=== PATIENT | male | born 1950 | race Caucasian/White ===

== ENCOUNTER 2019-07-17 14:10 | Inpatient (IN) | payer MEDICARE, BC ==
[~2019-07-17] VITALS: Ht 165.1 cm; Wt 94.3 kg
--- NOTE | 2019-07-17 14:20 | NUR ---
BIB ra frm home, c/o altered and fever, worsening x 2 weeks . Patient a/ox2, able to follow commands, breathing even and unlabored, spo2 85% on room air. Changed into gown, attached to the monitoring tech. Iv line established.
[2019-07-17] MEDS ORDERED: ACETAMINOPHEN 650 MG/SUPP.RECT RC ONE ×2 (14:29→14:30)
[2019-07-17] MEDS ORDERED: IV NS 0.9% 1,000 ML BAG IV ONE (14:30)
[2019-07-17] MEDS ORDERED: VANCOMYCIN 1 GM in IV D5W 250 ML IV ONE (14:30)
[2019-07-17] MEDS ORDERED: MEROPENEM 1,000 MG in IV NS 0.9% 100 ML IV ONE (14:30)
--- NOTE | 2019-07-17 14:40 | NUR ---
Vaishali wharton in [facility] - 07/17/19 at 1441 by ELVIE [phone] TELE
[2019-07-17 14:47] LABS: BASOPHILS % (AUTO) 0.2 % (0.0-2.0); HEMATOCRIT 37 % (39-51); HEMOGLOBIN 11.9 g/dL (13.5-17.5); LYMPHOCYTES # (AUTO) 0.8 /CMM (0.8-4.8); MEAN CORPUSCULAR HGB CONC 33 g/dl (31.0-36.0); MEAN CORPUSCULAR VOLUME 91 fL (80-96); MONOCYTES # (AUTO) 0.2 /CMM (0.1-1.30); MONOCYTES % (AUTO) 3.8 % (2.0-12.0); NEUTROPHILS # (AUTO) 4.6 /CMM (1.8-8.9); PLATELET COUNT (AUTO) 117 /CMM (150-450); RED BLOOD CELL COUNT(AUTO) 4.01 MIL/uL (4.5-6.0); WHITE BLOOD COUNT (AUTO) 5.6 K/uL (4.3-11.0)
[2019-07-17 14:57] LABS: CALCIUM, SERUM 8.4 mg/dL (8.5-10.1); CARBON DIOXIDE 28 mmol/L (21-32); CHLORIDE 100 mmol/L (98-107); CREATININE 1.4 mg/dL (0.6-1.3); GLUCOSE 85 mg/dL (74-106); POTASSIUM 4.1 mmol/L (3.5-5.1); SODIUM SERUM 137 mmol/L (136-145); UREA NITROGEN, BLOOD 30 mg/dL (7-18)
[2019-07-17 15:03] LABS: ALANINE AMINOTRANSFERASE 31 U/L (12-78); ALBUMIN 2.5 g/dL (3.4-5.0); ALKALINE PHOSPHATASE 79 U/L (46-116); ASPARTATE AMINOTRANSFERASE 72 U/L (15-37); BILIRUBIN,DIRECT 0.1 mg/dL (0.0-0.2); BILIRUBIN,TOTAL 0.3 mg/dL (0.2-1.0); TOTAL PROTEIN, SERUM 5.9 g/dL (6.4-8.2)
[2019-07-17] MEDS ORDERED: LEVO125T8 PO (15:08)
[2019-07-17] MEDS ORDERED: PANT40TA4 PO (15:09)
[2019-07-17] MEDS ORDERED: RANI-655 PO (15:09)
[2019-07-17] MEDS ORDERED: SACC250C PO (15:09)
[2019-07-17] MEDS ORDERED: METO25TA6 PO (15:09)
[2019-07-17] MEDS ORDERED: GABA600T12 PO (15:09)
[2019-07-17] MEDS ORDERED: LAMO100T2 PO (15:09)
[2019-07-17] MEDS ORDERED: ATOR80TA PO (15:09)
[2019-07-17] MEDS ORDERED: DOCU-141 PO (15:09)
[2019-07-17] MEDS ORDERED: GLUC-228 PO (15:09)
[2019-07-17] MEDS ORDERED: TRAM50TA2 PO (15:09)
[2019-07-17] MEDS ORDERED: ZOLP10TA2 PO (15:09)
[2019-07-17] MEDS ORDERED: METF-442 PO (15:09)
[2019-07-17] MEDS ORDERED: VENL225T PO (15:09)
[2019-07-17] MEDS ORDERED: GABA-534 PO (15:09)
[2019-07-17] MEDS ORDERED: QUET300T5 PO (15:09)
[2019-07-17] MEDS ORDERED: QUIN40TA14 PO (15:09)
[2019-07-17] MEDS ORDERED: MIRT30TA7 PO (15:09)
[2019-07-17] MEDS ORDERED: MELO-107 PO (15:09)
[2019-07-17] MEDS ORDERED: ACET325T53 MC (15:09)
[2019-07-17] MEDS ORDERED: ASPI-605 PO (15:09)
[2019-07-17 15:21] LABS: BILIRUBIN,URINE Negative (NEGATIVE); BLOOD, URINE Small Ery/uL (NEGATIVE); COLOR,URINE Yellow (YELLOW); KETONES,URINE Trace (NEGATIVE); LEUKOCYTE ESTERASE ,URINE Negative (NEGATIVE); NITRITE, URINE Negative (NEGATIVE); PROTEIN,URINE 30 mg/dl (NEGATIVE); UGLUCOSE Negative (NEGATIVE); UROBILINOGEN,URINE 0.2 EU/dL (0.2)
[2019-07-17 15:24] LABS: APPEARANCE,URINE HAZY (CLEAR)
[2019-07-17 15:24] LABS: ABG BASE EXCESS -0.1 mmol/L; ABG OXYGEN SATURATION 94.2 % (92.0-98.5); ABG PCO2 43.7 mmHg (35.0-45.0); ABG PH 7.378 (7.350-7.450); ABG PO2 77.9 mmHg (75.0-100.0); AaDO2 99.1 mmHg; COHb 0.4 % (0.5-1.5); MetHb 0.4 % (0.0-1.5); O2Hb 93.4 % (94.0-97.0); SITE, ABG Right Radial; VENT MODE, BG 3L NC
[2019-07-17 15:25] LABS: BACTERIA,URINE Few /HPF (None Seen)
[2019-07-17 15:26] LABS: SQUAMOUS EPITHELIAL CELL,UR Few /HPF (None Seen); URINE AMORPHOUS URATE Moderate /HPF (None Seen)
--- NOTE | 2019-07-17 15:43 | NUR ---
CALLED [facility] ITS [facility]IDAL[facility]
--- NOTE | 2019-07-17 16:19 | NUR ---
GOT BED 109
--- NOTE | 2019-07-17 16:56 | NUR ---
REPORT GIVEN TO SOON RN FOR ANIRUDH.
--- NOTE | 2019-07-17 17:30 | NUR ---
VERENICE RN NOTE RECEIVED PT AWAKE IN BED. ASSISTED BY 2 ER NURSE. PT IS ALERT X3. ABLE TO ANSWER QUESTIONS. NO CO PAIN OR DISCOMFORT. ON NC 2L TOLERATING WELL. VITAL SIGNS FOLLOWS BP 126/69, TEMP 99.2, RR 20BPM, HR 92 BEATS/MIN O2 SAT 96%. NO SIGNS OF DISTRESS. WILL CONT TO ASSESS AND MONITOR.
--- NOTE | 2019-07-17 17:42 | NUR ---
PATIENT TRANSFERRED TO ROOM 109 VIA ACLS PROTOCOL. NO DISTRESS NOTED. ENDORSED TO PARRISH MILAN.
[2019-07-17] MEDS ORDERED: MAG HYDROX/AL HYDROX/SIMETH 30 ML UDC PO PRN (18:00)
[2019-07-17] MEDS ORDERED: MAGNESIUM HYDROXIDE 30 ML UDC PO PRN (18:00)
[2019-07-17] MEDS ORDERED: ONDANSETRON HCL/PF 4 MG/2 ML VIAL IVP PRN (18:00)
[2019-07-17] MEDS ORDERED: ZOLPIDEM TARTRATE 5 MG TABLET PO PRN (18:00)
[2019-07-17] MEDS ORDERED: Z GUARD REMEDY 2 OZ OINT TP PRN (18:00)
[2019-07-17] MEDS ORDERED: HYDROCODONE/APAP 5/325MG 1 EACH TABLET PO PRN (18:00)
[2019-07-17] MEDS ORDERED: FEE PK DOSING 1 MIN EA MC ONE (18:34)
--- NOTE | 2019-07-17 19:20 | NUR ---
VERENICE BALDERAS RN NOTE PT IS IN BED APPEARS CALM AND RELAXED. ON NC 2L TOLERATING WELL. IV LINE 18G ON R WRIST FLUSHED WITH SALINE, PATENT. SEEN AND EXAMINED BY DR. PENA. AWAITING FURTHER ORDERS. ENDORSED TO OUTREACH WORKER NURSE FOR ANIRUDH.
[2019-07-17] MEDS: IV D5/0.45 NACL 1,000 ML IV PRN (19:29)
--- NOTE | 2019-07-17 19:30 | NUR ---
VERENICE RN OPENING NOTES RECEIVED PATIENT IN BED RESTING CALM AND COMFORTABLE. BREATHING NORMAL NO SOB NOTED. RESPIRATION EVEN NON LABORED. SKIN INTACT WARM AND DRY TO TOUCH. RT WRIST IV SITE 18G PATENT FLUSHED WELL. ON 2L NC O2 SAT 95%. SAFETY MEASURES IN PLACE.BED IN LOW AND LOCKED POSITION. CALL LIGHT WITHIN REACH. WILL CONT TO MONITOR.
--- NOTE | 2019-07-17 21:38 | NUR ---
RN NOTES pt agitated and restless. desats @ 83%on 2-4L NC. simple mask 10L sat is 91% only for a short period of time and down to 81% HR 140-160; screaming and agitated. Informed Kylie MartinezDIAMOND MERCHANT with order to do ABG. Primary RN and RT notified Addendum: 07/17/19 at 2332 by BRITTNEY COOK RN 2154 Kylie at bedside; aware that pt was just admitted and is a r/o COVID; instructed freelance copywriter to prepare to transfer; yane Arreola sup notified. Patient still desats , 80% on NRBM at this time . SECURITY CONTROL ASSESSOR or code blue not called per Kylie since she already called the team for intubation; remains restless; full code ;awaiting ABG result. Will be intubated in ICU per Kylie 2219 transferred patient to ICU after getting a bed from [facility] and a go signal from ICU clinic charge nurse, Renee.
[2019-07-17 21:59] LABS: ABG BASE EXCESS -6.5 mmol/L; ABG OXYGEN SATURATION 81.4 % (92.0-98.5); ABG PCO2 55.2 mmHg (35.0-45.0); ABG PH 7.214 (7.350-7.450); ABG PO2 56.9 mmHg (75.0-100.0); AaDO2 600.9 mmHg; COHb 0.1 % (0.5-1.5); MetHb 0.5 % (0.0-1.5); O2Hb 80.9 % (94.0-97.0); SITE, ABG Right Radial; VENT MODE, BG NON REBREATHER
--- NOTE | 2019-07-17 22:23 | NUR ---
RN/ICU-RECEIVED /TRANSFERRED FROM TD BY BED PER ACLS PROTOCOL , FOR RESPIRATORY DISTRESS.ACCOMPANIED BY RT AND TD STAFF. PT. ON NRB, SATS-69%, BP-122/68. PT. W/ ORDERS FOR EMERGENT.INTUBATION BY ER MD PER Joanna RAHMAN ACNP ORDER. ER MD NOTIFIED.
[2019-07-17 22:27] VITALS: BP 122/68
--- NOTE | 2019-07-17 22:34 | NUR ---
RN/ICU-ER MD DR VIGIL HERE TO INTUBATE PT. PT. PREMEDICATED W/ ETOMIDATE 20MG IVP FOLLOWED BY 100 MGS IVP SUCCINYLCHOLINE.
[2019-07-17 22:38] VITALS: BP 120/75
[2019-07-17 23:00] VITALS: BP 106/58
[2019-07-17] MEDS ORDERED: HYDROXYCHLOROQUINE 200 MG TABLET PO SCH (23:00)
[2019-07-17] MEDS ORDERED: AZITHROMYCIN 1,000 MG in IV D5W 250 ML IV SCH (23:00)
[2019-07-17] MEDS: PROPOFOL 100 ML IV PRN (23:05)
[2019-07-17] MEDS ORDERED: AZITHROMYCIN 500 MG VIAL ONE (23:19)
[2019-07-17 23:20] LABS: ABG OXYGEN SATURATION 74.3 % (92.0-98.5); ABG PH 7.245 (7.350-7.450); ABG PO2 46.9 mmHg (75.0-100.0); AaDO2 618.1 mmHg; COHb 0.3 % (0.5-1.5); MetHb 0.5 % (0.0-1.5); O2Hb 73.7 % (94.0-97.0); SITE, ABG Left Radial; VENT MODE, BG AC 20 450 100% +5
[2019-07-17 23:30] VITALS: BP 97/48
[2019-07-17] MEDS ORDERED: ACETAMINOPHEN 650 MG/SUPP.RECT RC PRN (23:30)
--- NOTE | 2019-07-17 23:40 | NUR ---
RT Pt was intubated on first attempt by MD Hawkins w/ ETT 7.5 @ 25cm lip. Positive Co2 color change and bilateral chest rise/fall noted. x-ray confirmed placement per md. ETT patent and secure via anchor fast. BINDERY MACHINE TENDER noted. Pt on mech vent with noted setting provided by . Vent to red outlet. Alarms set and audible. Disconnect alarm verified. Will continue to monitor. Addendum: 07/18/19 at 0531 by HERNAN ROBBINS RT Amended: Links added.
[2019-07-18] VITALS (92 sets, daily range): BP systolic 46–189; BP diastolic 29–110
[2019-07-18] MEDS ORDERED: NOREPINEPHRINE 4 MG/4 ML AMPUL IV ONE ×2 (00:25→05:06)
[2019-07-18 00:27] LABS: FERRITIN 564 ng/mL (8-388)
[2019-07-18] MEDS: HYDROXYCHLOROQUINE 200 MG TABLET NG SCH ×3 (00:36→16:49)
[2019-07-18] MEDS: NOREPINEPHRINE 8 MG in IV NS 0.9% 242 ML IV PRN ×2 (00:37→05:19)
[2019-07-18] MEDS: PROPOFOL 100 ML IV PRN ×7 (00:38→21:44)
[2019-07-18] MEDS ORDERED: MEROPENEM 1 G VIAL IV ONE (01:34)
[2019-07-18] MEDS: MEROPENEM 1 G in IV NS 0.9% 100 ML IV SCH ×2 (01:37→12:16)
[2019-07-18 02:20] LABS: ABG BASE EXCESS -3.9 mmol/L; ABG OXYGEN SATURATION 93.5 % (92.0-98.5); ABG PCO2 42.3 mmHg (35.0-45.0); ABG PO2 76.9 mmHg (75.0-100.0); AaDO2 593.8 mmHg; COHb 0.1 % (0.5-1.5); MetHb 0.3 % (0.0-1.5); O2Hb 93.1 % (94.0-97.0); PEEP,BG 12 cm H2O; SITE, ABG Right Radial; VENT MODE, BG AC 32/400/100%/+12; VT, ABG 400 mL
[2019-07-18 05:07] LABS: BASOPHILS % (AUTO) 0.2 % (0.0-2.0); HEMATOCRIT 37 % (39-51); HEMOGLOBIN 11.8 g/dL (13.5-17.5); LYMPHOCYTES # (AUTO) 0.5 /CMM (0.8-4.8); LYMPHOCYTES % (AUTO) 4.3 % (20.0-44.0); MEAN CORPUSCULAR HGB CONC 32 g/dl (31.0-36.0); MEAN CORPUSCULAR VOLUME 93 fL (80-96); MONOCYTES # (AUTO) 0.3 /CMM (0.1-1.30); MONOCYTES % (AUTO) 2.5 % (2.0-12.0); NEUTROPHILS # (AUTO) 11.6 /CMM (1.8-8.9); PLATELET COUNT (AUTO) 168 /CMM (150-450); RED BLOOD CELL COUNT(AUTO) 3.96 MIL/uL (4.5-6.0); WHITE BLOOD COUNT (AUTO) 12.5 K/uL (4.3-11.0)
[2019-07-18 05:23] LABS: ALBUMIN 2.1 g/dL (3.4-5.0); BILIRUBIN,DIRECT 0.2 mg/dL (0.0-0.2); BILIRUBIN,TOTAL 0.5 mg/dL (0.2-1.0); CALCIUM, SERUM 7.7 mg/dL (8.5-10.1); CREATININE 1.8 mg/dL (0.6-1.3); MAGNESIUM 1.6 mg/dL (1.8-2.4); PHOSPHORUS 3.5 mg/dL (2.5-4.9); POTASSIUM 4.9 mmol/L (3.5-5.1); TOTAL PROTEIN, SERUM 5.3 g/dL (6.4-8.2)
[2019-07-18 06:25] LABS: THYROID STIMULATING HORMONE 0.579 uIU/mL (0.358-3.74)
[2019-07-18] MEDS: PANTOPRAZOLE 40 MG TABLET.DR PO SCH (07:48)
[2019-07-18] MEDS: Magnesium 1GM/D5W 100ML PREMIX 100 ML IV SCH ×2 (07:49→08:37)
[2019-07-18] MEDS: ASPIRIN EC 81 MG TABLET.DR PO SCH (08:14)
[2019-07-18] MEDS: METFORMIN 500 MG TABLET PO SCH ×2 (08:14→16:50)
[2019-07-18] MEDS: LamoTRIgine 100 MG TABLET PO SCH (08:15)
[2019-07-18] MEDS ORDERED: ETOMIDATE 2 MG/ML VIAL IV ONE (08:37)
[2019-07-18] MEDS ORDERED: SUCCINYLCHOLINE CHLORIDE 20 MG/ML VIAL IV ONE (08:37)
[2019-07-18] MEDS: VANCOMYCIN 1 GM in IV D5W 250ml IV SCH (08:37)
[2019-07-18] MEDS: LEVOTHYROXINE SODIUM 125 MCG TABLET PO SCH (08:41)
[2019-07-18] MEDS ORDERED: HYDROXYCHLOROQUINE 200 MG TABLET NG SCH (09:00)
[2019-07-18 09:02] LABS: ABG OXYGEN SATURATION 95.3 % (92.0-98.5); ABG PCO2 48.6 mmHg (35.0-45.0); ABG PH 7.289 (7.350-7.450); AaDO2 575.4 mmHg; COHb 0.3 % (0.5-1.5); MetHb 0.4 % (0.0-1.5); O2Hb 94.6 % (94.0-97.0); PEEP,BG 12 cm H2O; SITE, ABG Right Radial; VT, ABG 400 mL
[2019-07-18] MEDS: NOREPINEPHRINE 32 MG in IV NS 0.9% 218 ML IV PRN ×2 (11:55→23:20)
[2019-07-18 12:51] LABS: ABG BASE EXCESS -4.5 mmol/L; ABG OXYGEN SATURATION 91.2 % (92.0-98.5); ABG PCO2 53.7 mmHg (35.0-45.0); ABG PH 7.252 (7.350-7.450); ABG PO2 69.8 mmHg (75.0-100.0); AaDO2 589.5 mmHg; COHb 0.3 % (0.5-1.5); MetHb 0.5 % (0.0-1.5); O2Hb 90.5 % (94.0-97.0); PEEP,BG 12 cm H2O; SITE, ABG Right Radial; VT, ABG 400 mL
--- NOTE | 2019-07-18 14:16 | NUR ---
RN NOTE 0715: Received patient sedated. With ETT to vent, with high settings, AC 32 Vt 400 FIO2 100 PEEP 12. On Diprivan @ 70mcg. URIEL PICC intact. IVF infusing as ordered. Temp 100.5, cooling measure ongoing. Right nare NGT intact, clamped. Isolation prec for Covid19 maintained and observed, airborne but no available airborne room at this time. 0850: S/E by Dr. Emery, with order to do 1:1 RN. Will inform CN. 1000: S//E by Dr. Madden, no new order at this time. 1020: S/E by Jamie WILSON. With order of Sputum CS and will start on Tamiflu. 1310: Noted with episode of low sat, low 80's, ABG done, made Dr. Emery aware for the result. With episode of 170's SBP on Levo 0.2, tried turning of but went to 70's, will keep on 0.1 at this time. 1330: Changed oxymeter, still reading 87%. XR tech ongoing. 1400: S/E by Dr. Rupert MD seen imaging for CXR, placed Dip to 100mcg as ordered for RR 40's. RT changed vent settings per MD. 1410: Will keep on Dip 100mcg, not breathing over the settings now.
[2019-07-18 15:12] LABS: ABG BASE EXCESS -3.8 mmol/L; ABG OXYGEN SATURATION 94.5 % (92.0-98.5); ABG PCO2 47.5 mmHg (35.0-45.0); ABG PH 7.298 (7.350-7.450); ABG PO2 81.9 mmHg (75.0-100.0); AaDO2 583.6 mmHg; COHb 0.3 % (0.5-1.5); MetHb 0.4 % (0.0-1.5); O2Hb 93.8 % (94.0-97.0); PEEP,BG 15 cm H2O; SITE, ABG Right Radial; VT, ABG 450 mL
--- NOTE | 2019-07-18 15:20 | NUR ---
RT NOTE: ABG RESULTS REPORTED TO WITH NO CHANGES ORDERED AT THIS TIME.
[2019-07-18] MEDS: ACETAMINOPHEN 325 MG TABLET PO PRN (15:36)
--- NOTE | 2019-07-18 16:00 | NUR ---
RT NOTES: PATIENT RECEIVED ORALLY INTUBATED WITH 7.5 ETT SECURED AT 25 CM MID LIP LINE ON PB 840 VENT. ALARMS VERIFIED AND AUDIBLE. VENT PLUGGED INTO RED OUTLET. AMBU BAG AT [facility].
[2019-07-18] MEDS: IV D5/0.45 NACL 1,000 ML IV PRN (16:49)
[2019-07-18] MEDS: OSELTAMIVIR PHOSPHATE 75 MG CAPSULE NG SCH (16:50)
--- NOTE | 2019-07-18 19:17 | NUR ---
RN NOTE Spoke with daughter and given update. Patient on AC 32 450 100% +15. On Diprivan @ 100mcg. Placed on cooling measures for temperature 101. Placed Reyna cath, noted with 600mL yellow urine with sediments, sent specimen to lab. Endorsed care to Vonda MILAN.
--- NOTE | 2019-07-18 20:00 | NUR ---
agricultural produce sorter. received the pt rest on the bed, orally intubated, ett 7.5,lip 25,ac 32,tv 450,fio2 100%,peep 15.sat 77%.internet media planner showing s tach. iv rt upper arm picc line ivf d51/2ns 75ml/h,levophed 0.04mcg/kg/min.,diprivan 100mcg/kg/min,rt nare ngt intact. temperature is cooling measure initiated. .fc patent. pt is unstable. will continue to monitor vitals.
--- NOTE | 2019-07-18 21:08 | NUR ---
rn pediatric icu. pt is orally intubated, diprivan on, 100mcg/kg/min,levophed 0.04mcg/kg/min, no gag reflex. fio2 100%. sat 66, notified md mann and pt daughter, will continue to monitor.
--- NOTE | 2019-07-18 22:02 | NUR ---
rn nicu. pt is very unstable, notified md mann and pt family.
--- NOTE | 2019-07-18 22:03 | NUR ---
agricultural produce commission agent. pt heart rate was 140. ekg. done. s tach.
[2019-07-18] MEDS: AZITHROMYCIN 500 MG in IV D5W 250 ML IV SCH (23:19)
[2019-07-19] VITALS (81 sets, daily range): BP systolic 63–179; BP diastolic 41–103
[2019-07-19] MEDS: PROPOFOL 100 ML IV PRN ×5 (00:03→11:56)
--- NOTE | 2019-07-19 00:04 | NUR ---
agricultural economist. trying to titrated down diprivan. pt r developed . tachypneic, rate was 45.
[2019-07-19] MEDS: MEROPENEM 1 G in IV NS 0.9% 100 ML IV SCH (00:45)
[2019-07-19] MEDS: ACETAMINOPHEN 325 MG TABLET PO PRN ×2 (03:26→23:36)
[2019-07-19 03:36] LABS: BASOPHILS # (AUTO) 0.1 /CMM (0.0-0.2); BASOPHILS % (AUTO) 0.6 % (0.0-2.0); EOSINOPHILS % (AUTO) 0.1 % (0.0-6.0); HEMATOCRIT 37 % (39-51); HEMOGLOBIN 12.2 g/dL (13.5-17.5); LYMPHOCYTES # (AUTO) 0.6 /CMM (0.8-4.8); LYMPHOCYTES % (AUTO) 3.9 % (20.0-44.0); MEAN CORPUSCULAR HGB CONC 33 g/dl (31.0-36.0); MEAN CORPUSCULAR VOLUME 92 fL (80-96); MONOCYTES # (AUTO) 0.3 /CMM (0.1-1.30); MONOCYTES % (AUTO) 1.6 % (2.0-12.0); NEUTROPHILS % (AUTO) 93.8 % (43.0-81.0); PLATELET COUNT (AUTO) 199 /CMM (150-450); RED BLOOD CELL COUNT(AUTO) 3.99 MIL/uL (4.5-6.0); WHITE BLOOD COUNT (AUTO) 15.9 K/uL (4.3-11.0)
[2019-07-19 03:44] LABS: APPEARANCE,URINE CLOUDY (CLEAR); BILIRUBIN,URINE NEGATIVE (NEGATIVE); BLOOD, URINE NEGATIVE Ery/uL (NEGATIVE); COLOR,URINE YELLOW (YELLOW); KETONES,URINE NEGATIVE (NEGATIVE); LEUKOCYTE ESTERASE ,URINE NEGATIVE (NEGATIVE); NITRITE, URINE NEGATIVE (NEGATIVE); PH,URINE 5.5 (5.0-8.0); PROTEIN,URINE TRACE mg/dl (NEGATIVE); UGLUCOSE NEGATIVE (NEGATIVE); UROBILINOGEN,URINE 0.2 EU/dL (0.2)
[2019-07-19 03:53] LABS: CREATININE, URINE 120.8 MG/DL (30.0-125.0); URINE TOTAL PROTEIN 90.2 mg/dL (0-11.9)
[2019-07-19 03:55] LABS: BACTERIA,URINE Moderate /HPF (None Seen); RBC,URINE 0-2 /HPF (0-2); SQUAMOUS EPITHELIAL CELL,UR Rare /HPF (None Seen)
[2019-07-19 04:01] LABS: C-REACTIVE PROTEIN 49.1 mg/dL (0.0-0.9)
[2019-07-19] MEDS: VANCOMYCIN 1 GM in IV D5W 250ml IV SCH (04:18)
[2019-07-19] MEDS: IV D5/0.45 NACL 1,000 ML IV PRN (04:19)
[2019-07-19 04:22] LABS: EOSINOPHIL,URINE None Seen
--- NOTE | 2019-07-19 04:42 | NUR ---
POLE SANDER OPERATOR. AM CARE, ORAL CARE, BED BATH GIVEN. LINEN CHANGED, REMAINING SAME VENT SETTING ON. HOB ELEVATED. IV RT UPPER ARM PICC LINE. IVF D51/2NS 75ML/H,LEVOPHED 0.04MCG/KG/MIN. DIPRIVAN 90MCG/KG/MIN, FC PATENT. FEBRILE. TURN AND REPOSITION Q2H. WILL CONTINUE TO MONITOR VITALS.
[2019-07-19 04:44] LABS: ALBUMIN 1.8 g/dL (3.4-5.0); BILIRUBIN,TOTAL 0.7 mg/dL (0.2-1.0); CALCIUM, SERUM 7.1 mg/dL (8.5-10.1); CREATININE 2.7 mg/dL (0.6-1.3); MAGNESIUM 2.4 mg/dL (1.8-2.4); PHOSPHORUS 5.4 mg/dL (2.5-4.9); POTASSIUM 6.1 mmol/L (3.5-5.1); TOTAL PROTEIN, SERUM 5.3 g/dL (6.4-8.2)
[2019-07-19] MEDS: LEVOTHYROXINE SODIUM 125 MCG TABLET PO SCH (08:44)
[2019-07-19] MEDS: OSELTAMIVIR PHOSPHATE 75 MG CAPSULE NG SCH (08:44)
[2019-07-19] MEDS: HYDROXYCHLOROQUINE 200 MG TABLET NG SCH (08:44)
[2019-07-19] MEDS: LamoTRIgine 100 MG TABLET PO SCH (08:44)
[2019-07-19] MEDS: ASPIRIN EC 81 MG TABLET.DR PO SCH (08:44)
[2019-07-19] MEDS: PANTOPRAZOLE 40 MG TABLET.DR PO SCH (08:52)
[2019-07-19 09:16] LABS: ABG BASE EXCESS -10.1 mmol/L; ABG OXYGEN SATURATION 85.1 % (92.0-98.5); ABG PCO2 61.4 mmHg (35.0-45.0); ABG PH 7.124 (7.350-7.450); ABG PO2 58.4 mmHg (75.0-100.0); AaDO2 593.2 mmHg; COHb 0.2 % (0.5-1.5); MetHb 0.8 % (0.0-1.5); O2Hb 84.2 % (94.0-97.0); PEEP,BG 10 cm H2O; SITE, ABG Right Radial; VT, ABG 450 mL
[2019-07-19] MEDS ORDERED: Sodium Bicarbonate 150 MEQ in IV D5/0.45 NACL 1,000 ML IV PRN ×5 (13:00→18:30)
[2019-07-19] MEDS ORDERED: AMIODARONE 150 MG in IV D5W 100 ML IV ONE (13:00)
[2019-07-19] MEDS ORDERED: AMIODARONE 900 MG in IV D5W 482 ML IV PRN (13:00)
[2019-07-19 13:39] LABS: CALCIUM, SERUM 7.1 mg/dL (8.5-10.1); CREATININE 3.5 mg/dL (0.6-1.3); MAGNESIUM 2.2 mg/dL (1.8-2.4); PHOSPHORUS 7.1 mg/dL (2.5-4.9); POTASSIUM 5.2 mmol/L (3.5-5.1)
[2019-07-19] MEDS ORDERED: MIDAZOLAM HCL 100 MG in IV NS 0.9% 80 ML IV PRN (14:00)
[2019-07-19] MEDS ORDERED: VECURONIUM 50 MG in IV NS 0.9% 50 ML IV PRN (14:00)
[2019-07-19 14:42] LABS: ABG BASE EXCESS -10.9 mmol/L; ABG OXYGEN SATURATION 62.9 % (92.0-98.5); ABG PCO2 76.1 mmHg (35.0-45.0); ABG PH 7.047 (7.350-7.450); AaDO2 595.9 mmHg; COHb 0.1 % (0.5-1.5); MetHb 0.8 % (0.0-1.5); O2Hb 62.3 % (94.0-97.0); SITE, ABG A-Line; VENT MODE, BG AC 36 400 100% +17
[2019-07-19] MEDS: NOREPINEPHRINE 32 MG in IV NS 0.9% 218 ML IV PRN ×2 (15:12→21:12)
[2019-07-19] MEDS: EPINEPHRINE (1:1000) 5 MG in IV NS 0.9% 245 ML IV PRN ×2 (15:14→16:11)
[2019-07-19] MEDS: Calcium Gluconate 1GM/10ML 9.3 MEQ in IV D5W 250 ML IV SCH ×3 (15:58→21:13)
--- NOTE | 2019-07-19 16:11 | NUR ---
SHOE STITCHER NOTE PER DR TRUJILLO ORDER FOR HIGHEST CONCENTRATION OF EPINEPHRINE
[2019-07-19 16:18] LABS: ABG BASE EXCESS -15.2 mmol/L; ABG OXYGEN SATURATION 63.8 % (92.0-98.5); ABG PCO2 63.2 mmHg (35.0-45.0); ABG PH 7.021 (7.350-7.450); ABG PO2 42.4 mmHg (75.0-100.0); AaDO2 607.4 mmHg; COHb 0.3 % (0.5-1.5); MetHb 0.7 % (0.0-1.5); O2Hb 63.2 % (94.0-97.0); PEEP,BG 20 cm H2O; VT, ABG 500 mL
[2019-07-19] MEDS ORDERED: EPINEPHRINE (1:1000) 10 MG in IV NS 0.9% 240 ML IV PRN ×4 (16:30)
[2019-07-19] MEDS: ALBUMIN 25% 25 GM in PREMIX 1 EA IV SCH ×2 (16:31→21:16)
--- NOTE | 2019-07-19 19:00 | NUR ---
Received patient orally intubated on the ventilator on AC mode,non responsive (S/P Code 2x ), pupils fixed and dilated, no cough, no gag reflex. On Contact/Droplet Isolation R/O COVID -19 pending result. With deep ,labored breathing with deep inspiratory effort, with high PIP. On Paralyzing agent (Norcuron),will titrate ,with Nerve stimulator applied at the facial nerve. On Levophed drip and Epinephrine drip for BP support.
--- NOTE | 2019-07-19 19:30 | NUR ---
END OF SHIFT NOTE: PT HAD A VERY EVENTFUL SHIFT. PT CODED X2 THIS SHIFT, SEE CODE BLUE SHEETS. PT'S GTT CHANGED THIS SHIFT. SEE IV TITRATION FOR CURRENT DOSES AND RATES. PT HAS A PARALYTIC INFUSING PER MD ORDERS TO HELP WITH LUNG HEALING. NEW LINES INSERTED THIS SHIFT WERE RIGHT FEM ART LINE AND LEFT FEM HD CATHETER WITH PIG TAIL. BOTH LINES WERE INSERTED BY DR. FREEDOM TRUJILLO. VITAL SIGNS WERE MONITORED Q15 MINUTES ALTHOUGH THERE WAS A MONITOR ERROR AND SEVERAL VS RESULTS ARE UNAVAILABLE TO CHART BETWEEN [phone]. RN MONITORED VS DURING THIS TIME CLOSELY BUT VS DID NOT RECORD. RN AND MD'S SPOKE TO FAMILY MEMBERS SEVERAL TIMES THIS SHIFT. FAMILY APPEARS TO BE SUPPORTIVE AND STATES THEY UNDERSTAND THE SITUATION WITH PATIENT. PT CHECKED ON HOURLY AND PRN BY NURSING STAFF.
[2019-07-19 19:36] LABS: ABG BASE EXCESS -8.9 mmol/L; ABG OXYGEN SATURATION 74.3 % (92.0-98.5); ABG PCO2 61.8 mmHg (35.0-45.0); ABG PH 7.141 (7.350-7.450); ABG PO2 46.1 mmHg (75.0-100.0); AaDO2 605.1 mmHg; COHb 0.1 % (0.5-1.5); MetHb 0.6 % (0.0-1.5); O2Hb 73.8 % (94.0-97.0); PEEP,BG 22 cm H2O; SITE, ABG A-Line; VT, ABG 500 mL
--- NOTE | 2019-07-19 20:05 | NUR ---
INCREASED PEEP TO 24 AND TIDAL VOLUME OF [address] FUNK . BJORN PATRICK AND CHARGE NURSE NOTIFIED.
[2019-07-19] MEDS: EPINEPHRINE (1:1000) 10 MG in IV NS 0.9% 240 ML IV PRN (21:09)
--- NOTE | 2019-07-19 22:00 | NUR ---
ABG drawn via Arterial line.Patient status remains ucn
[2019-07-19] MEDS: AZITHROMYCIN 500 MG in IV D5W 250 ML IV SCH (22:09)
[2019-07-19 22:23] LABS: ABG BASE EXCESS -12.8 mmol/L; ABG OXYGEN SATURATION 85.3 % (92.0-98.5); ABG PCO2 39.9 mmHg (35.0-45.0); ABG PH 7.185 (7.350-7.450); ABG PO2 65.3 mmHg (75.0-100.0); AaDO2 607.8 mmHg; COHb 0.3 % (0.5-1.5); MetHb 0.6 % (0.0-1.5); O2Hb 84.5 % (94.0-97.0); PEEP,BG 24 cm H2O; SITE, ABG A-Line; VT, ABG 550 mL
[2019-07-20] VITALS (9 sets, daily range): BP systolic 50–137; BP diastolic 32–71
--- NOTE | 2019-07-20 | NUR ---
Remains unresponsive, still on Levophed and Epinephrine drip, NAHCO3 Bicarb drip.
--- NOTE | 2019-07-20 | NUR ---
ABG result relayed to Dr. Rocha .No further orders or changes made.PH-7.18,CO2-39.9, PO2-65.6,HCO3-14.7, SAT-85.3
[2019-07-20] MEDS: MEROPENEM 1 G in IV NS 0.9% 100 ML IV SCH ×2 (01:30→01:32)
--- NOTE | 2019-07-20 01:30 | NUR ---
Heart rate progressively dropped junctional to PEA,called CODE. 1 amp Epinephrine given , gained back pulse and BP.
--- NOTE | 2019-07-20 02:10 | NUR ---
Bradycardic then briefly asystolic but gained back pulse heart rate in the 60's junctional rhythm .
[2019-07-20] MEDS: EPINEPHRINE (1:1000) 10 MG in IV NS 0.9% 240 ML IV PRN (02:16)
--- NOTE | 2019-07-20 02:40 | NUR ---
Asystolic again ,Code called.
[2019-07-20] MEDS ORDERED: AMIODARONE 150 MG/3 ML VIAL IV ONE (02:45)
[2019-07-20] MEDS ORDERED: EPINEPHRINE (1:10,000) SYRINGE 1 MG/10 ML DISP.SYRIN IVP ONE (02:45)
[2019-07-20] MEDS ORDERED: FEE EMEERGENCY 1 MIN EA MC ONE (02:45)
[2019-07-20] MEDS ORDERED: SODIUM BICARBONATE SYR 50 MEQ/50 ML DISP.SYRIN IV ONE (02:45)
[2019-07-20] MEDS ORDERED: CALCIUM CHLORIDE 1,000 MG/10 ML DISP.SYRIN IV ONE (02:45)
--- NOTE | 2019-07-20 02:45 | NUR ---
Code was called ,expiration time [address] Vaughn.Nursing supervisor alteration workroom also aware,present at the code.
--- NOTE | 2019-07-20 02:50 | NUR ---
Family was made known of the patient's by nursing outbound supervisor, she spoke to the patient's daughter Gwendolyn.
--- NOTE | 2019-07-20 03:00 | NUR ---
[facility] was called,body is released/not a candidate for donation, spoke to Gabe ,Reference # [id number]
--- NOTE | 2019-07-20 03:20 | NUR ---
Called [facility],spoke to Juan Alberto, not a braided rug maker's case, body is released.
--- NOTE | 2019-07-20 03:30 | NUR ---
called, unable to come because she's on quarantine as well as the daughter due to possible exposure to patient who is being ruled out for COVID -19(test result still pending).But expressed desire to know the result of the COVID test ,if possible if the result comes back if somebody can call her of the result.
--- NOTE | 2019-07-20 04:43 | NUR ---
LABORATORY CALLED PATIENT + COVID -19 ,RELAYED BY
--- NOTE | 2019-07-20 04:45 | NUR ---
Confirmed by nursing soaking pits supervisor [facility] that it's OK to call family about the positive result of COVID 19 as the requested to be called about the result. Called the family spoke to Ximena () , let her made aware of the + COVID -19 result.
[2019-07-20 05:07] LABS: HIV SCRN 4G wRFX Non Reactive (Non Reactive)
--- NOTE | 2019-07-20 05:15 | NUR ---
Body brought down to the morgue with extreme precaution.
--- NOTE | 2019-07-20 05:20 | NUR ---
Lumatic called for [facility] =14.2 ,relayed by Stacey.
[2019-07-20 06:06] LABS: PTH, INTACT 302 pg/mL (15-65)
[2019-07-20] MEDS ORDERED: VANCOMYCIN 1 GM in IV D5W 250ml IV SCH (08:00)
[2019-07-20] MEDS ORDERED: HYDROXYCHLOROQUINE 200 MG TABLET PO SCH (09:00)
[2019-07-20] MEDS ORDERED: HYDROXYCHLOROQUINE 200 MG TABLET NG SCH (09:00)
[2019-07-21 11:06] LABS: *SPE A/G RATIO 0.8 (0.7-1.7); *SPE ALBUMIN 2.1 g/dL (2.9-4.4); *SPE ALPHA-1-GLOBULIN 0.4 g/dL (0.0-0.4); *SPE ALPHA-2-GLOBULIN 1.3 g/dL (0.4-1.0); *SPE BETA GLOBULIN 0.7 g/dL (0.7-1.3); *SPE GLOBULIN, TOTAL 2.7 g/dL (2.2-3.9); *SPE M-SPIKE Not Observed g/dL (Not Observed); *SPEGAMMA GLOBULIN 0.3 g/dL (0.4-1.8)
== END 2019-07-20 02:46 | disposition expired | DRG 871 ==
LOC: ER 14:12 → TELE-TD 16:20 → ICU 22:21
PROVIDERS: ADMIT Student in an Organized Health Care Education/Training Program; ATTEND Student in an Organized Health Care Education/Training Program
PROC: 5A1945Z Respiratory Ventilation, 24-96 Consecutive Hours (ICD-10-PCS; principal; 2019-07-18)
PROC: 0BH17EZ Insertion of Endotracheal Airway into Trachea, Via Natural or Artificial Opening (ICD-10-PCS; 2019-07-18)
PROC: 04HY32Z Insertion of Monitoring Device into Lower Artery, Percutaneous Approach (ICD-10-PCS; 2019-07-19)
PROC: 5A1D70Z Performance of Urinary Filtration, Intermittent, Less than 6 Hours Per Day (ICD-10-PCS; 2019-07-19)
PROC: 5A2204Z Restoration of Cardiac Rhythm, Single (ICD-10-PCS; 2019-07-20)
DX: A41.9 Sepsis, unspecified organism (principal); J12.89 Other viral pneumonia; J15.9 Unspecified bacterial pneumonia; N17.0 Acute kidney failure with tubular necrosis; G92 Toxic encephalopathy; J96.01 Acute respiratory failure with hypoxia; J96.02 Acute respiratory failure with hypercapnia; R65.21 Severe sepsis with septic shock; K72.00 Acute and subacute hepatic failure without coma; E43 Unspecified severe protein-calorie malnutrition; E87.1 Hypo-osmolality and hyponatremia; E87.2 Acidosis; B17.9 Acute viral hepatitis, unspecified; B97.29 Other coronavirus as the cause of diseases classified elsewhere; K21.9 Gastro-esophageal reflux disease without esophagitis; E03.9 Hypothyroidism, unspecified; E11.9 Type 2 diabetes mellitus without complications; I10 Essential (primary) hypertension; E78.5 Hyperlipidemia, unspecified; G89.29 Other chronic pain; I25.2 Old myocardial infarction; Z98.890 Other specified postprocedural states; D64.9 Anemia, unspecified; E78.1 Pure hyperglyceridemia; E83.42 Hypomagnesemia; E83.51 Hypocalcemia; E87.5 Hyperkalemia; F32.9 Major depressive disorder, single episode, unspecified; I25.10 Atherosclerotic heart disease of native coronary artery without angina pectoris; Z79.82 Long term (current) use of aspirin; Z79.899 Other long term (current) drug therapy; Z79.84 Long term (current) use of oral hypoglycemic drugs; R74.0 Nonspecific elevation of levels of transaminase and lactic acid dehydrogenase [LDH]; D69.6 Thrombocytopenia, unspecified; E66.01 Morbid (severe) obesity due to excess calories; Z68.34 Body mass index [BMI] 34.0-34.9, adult; Z95.5 Presence of coronary angioplasty implant and graft; R57.1 Hypovolemic shock; M54.40 Lumbago with sciatica, unspecified side; D72.810 Lymphocytopenia
CPT/HCPCS: 31720; 36415; 36600; 70450-TC; 71045-TC; 80048-TC; 80053-TC; 80061-TC; 80076-TC; 80202-TC; 81000-TC; 82140-TC; 82550-TC; 82570-TC; 82728-TC; 82803-TC; 82962-TC; 83605-TC; 83615-TC; 83735-TC; 83970; 84100-TC; 84155; 84155-TC; 84165; 84300-TC; 84443-TC; 84484-TC; 85025-TC; 85730-TC; 86140; 86140-TC; 87040-TC; 87070-TC; 87081-TC; 87086-TC; 90935-TC; 93307-TC; 94002-TC; 94003-TC; A4216; C1750; C1751; G0378; J0171; J0282; J0330; J0456; J0610; J2185; J2250; J3370; J3475; J3490; J7030; J7040; J7050; J7060; P9047; U0002